=== PATIENT | female | born 1980 | race Caucasian/White ===

== ENCOUNTER 2018-08-16 03:12 | Emergency (ER) | payer MEDICAID | END 2018-08-16 05:28 | disposition home or self-care (01) | LOC: FTE 03:12 | DX: S40.821A Blister (nonthermal) of right upper arm, initial encounter (principal); X58.XXXA Exposure to other specified factors, initial encounter; Y92.9 Unspecified place or not applicable | CPT/HCPCS: 99283; Z7502 ==